=== PATIENT | female | born 1970 | race Caucasian/White ===

== ENCOUNTER 2019-01-18 17:32 | Emergency (ER) | payer MEDICARE ==
[2019-01-18] MEDS ORDERED: NALOXONE HCL 1 MG/ML SYR IVP ONE (17:49)
[2019-01-18] MEDS ORDERED: 0.9 % SODIUM CHLORIDE 1000ML 1,000 ML IV PRN (17:51)
--- NOTE | 2019-01-18 17:59 | Emergency Department Record ---
History of Present Illness - General Chief Complaint: Overdose Stated Complaint: OD Time Seen by Provider: 01/18/19 17:51 Source: Patient, RN notes reviewed Mode of Arrival: Stretcher - History of Present Illness Initial Comments: patient came to the ED via car and unresponsive and family states they think she overdosed on vicodin and was unresponsive to sternal rub by Juan and she was given intranasal narcan 2 mg and she wake up and stated she has arthritis and took maybe four norco. Patient was purple in the car and now she is oriented times three. She denies suicide. Onset/Timin -: Hour(s) Substance Ingested: Elco - Detail Intent: Unknown How Overdose Was Discovered: Other Context: Accidental Overdose: Uncertain what happened Context: Intentional Overdose: Other Associated Symptoms: Lethargy Treatments Prior to Arrival: Narcan - Related Data Home Medications Medication Instructions Recorded Confirmed Last Taken Duloxetine HCl [Cymbalta] 90 mg PO DAILY 01/18/19 01/18/19 Unknown Hydrocodone/Acetaminophen [Elco 1 each PO TID 01/18/19 01/18/19 Unknown 7.5-325 Tablet] Methotrexate Sodium [Trexall] 10 mg PO WEEKLY 01/18/19 01/18/19 Unknown Pregabalin [Lyrica] 150 mg PO BID 01/18/19 01/18/19 Unknown Allergies Allergy/AdvReac Type Severity Reaction Status Date / Time No Known Drug Allergies Allergy Verified 01/18/19 17:40 Travel Screening - Travel/Exposure Within Last 30 Days Have you traveled within the last 30 days?: No Review of Systems ROS unobtainable: Due to mental status Reviewed: No additional complaints except as noted below Constitutional: Reports: As per HPI. Denies: Chills, Fever, Malaise, Night sweats, Weakness, Weight change Eyes: Reports: As per HPI. Denies: Eye discharge, Eye pain, Photophobia, Vision change ENT: Reports: As per HPI. Denies: Congestion, Dental pain, Ear pain, Epistaxis , Hearing loss, Throat pain Respiratory: Reports: As per HPI. Denies: Cough, Dyspnea, Hemoptysis, Stridor, Wheezes Cardiovascular: Reports: As per HPI. Denies: Arrhythmia, Chest pain, Dyspnea on exertion, Edema, Murmurs, Orthopnea, Palpitations, Paroxysmal nocturnal dyspnea, Rheumatic Fever, Syncope Endocrine: Reports: As per HPI. Denies: Fatigue, Heat or cold intolerance, Polydipsia, Polyuria Gastrointestinal: Reports: As per HPI. Denies: Abdominal pain, Constipation, Diarrhea, Hematemesis, Hematochezia, Melena, Nausea, Vomiting Genitourinary: Reports: As per HPI. Denies: Abnormal menses, Discharge, Dyspareunia, Dysuria, Frequency, Hematuria, Incontinence, Retention, Urgency Musculoskeletal: Reports: As per HPI. Denies: Arthralgia, Back pain, Gout, Joint swelling, Myalgia, Neck pain Skin: Reports: As per HPI. Denies: Bruising, Change in color, Change in hair/ nails, Lesions, Pruritus, Rash Neurological: Reports: As per HPI. Denies: Abnormal gait, Confusion, Headache, Numbness, Paresthesias, Seizure, Tingling, Tremors, Vertigo, Weakness Psychiatric: Reports: As per HPI. Denies: Anxiety, Auditory hallucinations, Depression, Homicidal thoughts, Suicidal thoughts, Visual hallucinations Hematological/Lymphatic: Reports: As per HPI. Denies: Anemia, Blood Clots, Easy bleeding, Easy bruising, Swollen glands Past Medical History - SOCIAL HISTORY Smoking Status: Never smoker Alcohol Use: None Drug Use: None - RESPIRATORY Hx Respiratory Disorders: No - CARDIOVASCULAR Hx Cardio Disorders: No - NEURO Hx Neuro Disorders: No - GI Hx GI Disorders: No - Hx Genitourinary Disorders: No - ENDOCRINE Hx Endocrine Disorders: No - MUSCULOSKELETAL Hx Musculoskeletal Disorders: Yes Hx Arthritis: Yes - PSYCH Hx Psych Problems: No Hx Depression: Yes - HEMATOLOGY/ONCOLOGY Hx Hematology/Oncology Disorders: No Family Medical History Any Significant Family History?: No Physical Exam - General General Appearance: Alert, Oriented x3, Cooperative, No acute distress, Other ( post narcan prior she was unresponsive) - Head Head exam: Normal inspection - Eye Eye exam: Normal appearance, PERRL Pupils: Normal accommodation - ENT ENT exam: Normal exam, Mucous membranes moist, Normal external ear exam, Normal orophraynx, TM's normal bilaterally Ear exam: Normal external inspection. negative: External canal tenderness Nasal Exam: Normal inspection. negative: Discharge, Sinus tenderness Mouth exam: Normal external inspection, Tongue normal Teeth exam: Normal inspection. negative: Dental caries Throat exam: Normal inspection. negative: Tonsillar erythema, Tonsillar exudate - Neck Neck exam: Normal inspection, Full ROM. negative: Tenderness - Respiratory Respiratory exam: Normal lung sounds bilaterally. negative: Respiratory distress - Cardiovascular Cardiovascular Exam: Regular rate, Normal rhythm, Normal heart sounds - GI/Abdominal GI/Abdominal exam: Soft, Normal bowel sounds. negative: Tenderness - Rectal Rectal exam: Deferred - exam: Deferred - Extremities Extremities exam: Normal inspection, Full ROM, Normal capillary refill. negative: Tenderness - Back Back exam: Reports: Normal inspection, Full ROM. Denies: Muscle spasm, Rash noted, Tenderness - Neurological Neurological exam: Alert, Normal gait, Oriented X3, Reflexes normal - Psychiatric Psychiatric exam: Normal affect, Normal mood - Skin Skin exam: Dry, Intact, Normal color, Warm Course Vital Signs 01/18/19 17:33 Temperature 97.9 F Pulse Rate 102 H Respiratory 20 Rate Blood Pressure 152/105 Pulse Ox 98 - Reevaluation(s) Reevaluation #1: patient admits to using someone elses pain medication and she said she will never do that again 01/18/19 19:17 Reevaluation #2: repeat exam alert and oriented times three and neuro intact 01/18/19 19:20 Medical Decision Making - Lab Data Result diagrams: 01/18/19 17:40 01/18/19 17:40 Disposition Clinical Impression: Substance abuse Narcotic overdose Qualifiers: Encounter type: initial encounter Injury intent: accidental or unintentional Qualified Code(s): T40.601A - Poisoning by unspecified narcotics, accidental ( unintentional), initial encounter Disposition: Home, Self-Care Condition: (1) Good Instructions: Adult Overdose (ED), Opioid Overdose (ED) Additional Instructions: never use anyone elses medication follow up with her tomorrow for evaluation of substance abuse please give her information on substance abuse Forms: Patient Portal Access Time of Disposition: 19:19 Quality - Quality Measures Quality Measures: N/A - Blood Pressure Screening Does Patient Have Any of the Following: No Blood Pressure Classification: Hypertensive Reading Systolic Measurement: 152 Diastolic Measurement: 105 Screening for High Blood Pressure: < Pre-Hypertensive BP, F/U Documented > [ G8950] Pre-Hypertensive Follow-up Interventions: Referral to alternative/primary care provider.
[2019-01-18 18:02] LABS: BASO % 0.9 % (0-6); EOS % 3.2 % (0-6); GRAN % 50.3 % (47-80); HEMATOCRIT 43.2 % (35.0-47.0); HEMOGLOBIN 13.9 gm/dl (11.6-16.0); LYMPH % 40.6 % (16-45); MEAN CELL VOLUME 93.1 fl (81-97); MEAN CORPUSCULAR HGB CONC 32.2 g/dl (32-36); MEAN PLATELET VOLUME 9.7 fl (7.4-10.4); PLATELET COUNT 358 K/uL (130-400); RED BLOOD COUNT 4.64 M/uL (3.80-5.40); RED CELL DISTRIBUTION WIDTH 17.1 % (11.5-14.5); WHITE BLOOD COUNT W/O DIFF 6.8 K/uL (4.2-12.2)
[2019-01-18 18:20] LABS: BLOOD UREA NITROGEN 22 mg/dL (6-20); CREATININE 0.6 mg/dL (0.5-0.9); EST GLOMERULAR FILTRATION RATE > 60 mL/min
[2019-01-18 18:21] LABS: TOTAL PROTEIN 8.4 g/dL (6.6-8.7)
[2019-01-18 18:23] LABS: GLUCOSE,RANDOM 166 mg/dL (74-109)
[2019-01-18 18:25] LABS: ALBUMIN 4.7 g/dL (4.0-5.0); ALT/SGPT 40 U/L (<33); AST/SGOT 43 U/L (10.0-35.0)
[2019-01-18 18:26] LABS: ALKALINE PHOSPHATASE 134 U/L (35-104)
[2019-01-18 18:29] LABS: ACETAMINOPHEN < 5.0 ug/mL (10.0-30.0); BILIRUBIN,DIRECT < 0.2 mg/dL (0-0.3); SALICYLATE < 0.3 mg/dL (2.8-20)
[2019-01-18 18:53] LABS: AMPHETAMINE SCREEN URINE NOT DETECTED; BARBITURATE SCREEN URINE NOT DETECTED; BENZODIAZEPINE SCREEN URINE NOT DETECTED; COCAINE SCREEN URINE NOT DETECTED; METHADONE SCREEN URINE NOT DETECTED; METHAMPHETAMINE SCREEN NOT DETECTED; OPIATE SCREEN URINE NOT DETECTED; OXYCODONE SCREEN URINE NOT DETECTED; PHENCYCLIDINE SCREEN URINE NOT DETECTED; PROPOXYPHENE SCREEN URINE NOT DETECTED; THC SCREEN URINE NOT DETECTED; TRICYCLIC ANTIDEPRESSANT SCRN NOT DETECTED
[2019-01-18 19:33] LABS: HCG,QUALITATIVE URINE NEGATIVE (NEGATIVE)
[2019-01-18 19:38] LABS: URINE APPEARANCE CLEAR; URINE BILIRUBIN NEGATIVE (NEGATIVE); URINE BLOOD NEGATIVE (NEGATIVE); URINE COLOR YELLOW; URINE GLUCOSE (UA) NEGATIVE (NEGATIVE); URINE KETONE NEGATIVE (NEGATIVE); URINE LEUKOCYTE ESTERASE TRACE (NEGATIVE); URINE NITRITE NEGATIVE (NEGATIVE); URINE PROTEIN NEGATIVE (NEGATIVE); URINE UROBILINOGEN 0.2 E.U./dL (0.20 - 1.00)
[2019-01-18 19:39] LABS: URINE BACTERIA FEW; URINE RBC 0 - 2 (NONE SEEN); URINE WBC 0 - 2 (0-2/hpf)
== END 2019-01-18 19:31 | disposition home or self-care (01) ==
LOC: ER 17:32
DX: T40.2X1A Poisoning by other opioids, accidental (unintentional), initial encounter (principal); R53.83 Other fatigue; F19.10 Other psychoactive substance abuse, uncomplicated
CPT/HCPCS: 99284 ×2; 96374; 96361; 85025; 85730; 80076; 80048; 81001; 81025; 80305; G0480 ×3; 80320; 80329; J2310

== ENCOUNTER 2019-08-04 16:19 | Emergency (ER) | payer MEDICARE, MEDICAID ==
--- NOTE | 2019-08-04 16:50 | Emergency Department Record ---
History of Present Illness - General Chief complaint: ENT Stated complaint: EAR PAIN Time Seen by Provider: 08/04/19 16:36 Source: Patient Mode of Arrival: Ambulatory Limitations: No limitations - History of Present Illness Initial comments: The patient is here due to an 8 day hx of L ear pain. She denies any drainage, fever, chills, or ST but state it also hurts just under the L ear. The patient also denies any COLBERT, cough or neck pain. She has no hx of tubes or TM perforations. MD complaint: Ear pain Onset/Timin -: Week(s) Location: L ear Severity: Moderate Severity scale (1-10): 8 Quality: Aching Consistency: Constant Improves with: None Worsens with: None Associated Symptoms: Rhinorrhea, Sore throat - Related Data Previous Rx's Medication Instructions Recorded Neomycin/Polymyxin B Sulf/Hc 3 drop AFFEAR QID #10 ml 08/04/19 [Cortisporin Otic] Allergies Allergy/AdvReac Type Severity Reaction Status Date / Time No Known Drug Allergies Allergy Verified 01/18/19 17:40 Travel Screening - Travel/Exposure Within Last 30 Days Have you traveled within the last 30 days?: No - Travel/Exposure Within Last Year Have you traveled outside the [place] in the last year?: No - Additonal Travel Details Have you been exposed to anyone with a communicable illness?: No - Travel Symptoms Symptom Screening: None Review of Systems Constitutional: Denies: Chills, Fever Eyes: Denies: Eye discharge ENT: Denies: Congestion Respiratory: Denies: Cough Past Medical History - SOCIAL HISTORY Smoking Status: Never smoker Alcohol Use: None Drug Use: None - RESPIRATORY Hx Respiratory Disorders: No - CARDIOVASCULAR Hx Cardio Disorders: No - NEURO Hx Neuro Disorders: No - GI Hx GI Disorders: No - Hx Genitourinary Disorders: No - ENDOCRINE Hx Endocrine Disorders: No - MUSCULOSKELETAL Hx Musculoskeletal Disorders: Yes Hx Arthritis: Yes - PSYCH Hx Psych Problems: No Hx Depression: Yes - HEMATOLOGY/ONCOLOGY Hx Hematology/Oncology Disorders: No Family Medical History Any Significant Family History?: No Physical Exam - General General Appearance: Alert, Oriented x3, Cooperative, No acute distress - Head Head exam: Atraumatic, Normocephalic - Eye Eye exam: Normal appearance, PERRL. negative: Conjunctival injection - ENT ENT exam: TM's normal bilaterally Ear exam: Normal external inspection, External canal tenderness, Other (There is pain with palpation of the tragus and pulling on the L pinnae. The L ear canal is mildly inflamed but with a normal TM.) Nasal Exam: Normal inspection Throat exam: Normal inspection. negative: Tonsillar erythema, Tonsillar exudate - Neck Neck exam: Normal inspection, Full ROM. negative: Lymphadenopathy, Tenderness - Respiratory Respiratory exam: Normal lung sounds bilaterally. negative: Respiratory distress - Cardiovascular Cardiovascular Exam: Regular rate, Normal rhythm, Normal heart sounds. negative: Diastolic murmur, Systolic murmur - Extremities Extremities exam: Normal inspection, Full ROM, Normal capillary refill. negative: Tenderness Course Vital Signs 08/04/19 16:32 Temperature 98.6 F Pulse Rate [ 48 L Pulse Ox Probe] Respiratory 18 Rate Blood Pressure 148/76 [Left Arm] Pulse Ox 99 - Reevaluation(s) Reevaluation #1: I did explain to the patient that she appears to have a mild external otitis. We will prescribe drops and have her see her PCP next week. 08/04/19 16:48 Disposition Disposition: Discharge Clinical Impression: Otitis externa Qualifiers: Otitis externa type: unspecified type Chronicity: acute Laterality: left Qualified Code(s): H60.502 - Unspecified acute noninfective otitis externa, left ear Disposition: Home, Self-Care Condition: (2) Stable Instructions: Otitis Externa (ED) Additional Instructions: Please use Tylenol for pain and please use the Cortisporin drops as directed. Please see your family doctor next week if not better. Prescriptions: Neomycin/Polymyxin B Sulf/Hc [Cortisporin Otic] 3 drop AFFEAR QID #10 ml Forms: Patient Portal Access Time of Disposition: 16:50 Quality - Quality Measures Quality Measures: N/A - Blood Pressure Screening View Details: Yes Does Patient Have Any of the Following: No Blood Pressure Classification: Hypertensive Reading Systolic Measurement: 148 Diastolic Measurement: 76 Screening for High Blood Pressure: < First Hypertensive BP, F/U Documented > [G8950] First Hypertensive Follow-up Interventions: Referral to alternative/primary care provider.
== END 2019-08-04 16:56 | disposition home or self-care (01) ==
LOC: ER 16:19
DX: H60.502 Unspecified acute noninfective otitis externa, left ear (principal)
CPT/HCPCS: 99283